=== PATIENT | female | born 1965 | race Caucasian/White ===

== ENCOUNTER → 2021-05-18 | Outpatient (CLI) | payer MEDICARE ==
[2021-05-18 17:37] LABS: Adenovirus F 40/41 Not Detected (NOT DETECT); Astrovirus Not Detected (NOT DETECT); Campylobacter Sp Not Detected (NOT DETECT); Cryptosporidium Not Detected (NOT DETECT); Cyclospora Cayetanensis Not Detected (NOT DETECT); E. Coli O157 Not Detected (NOT DETECT); Entamoeba Histolytica Not Detected (NOT DETECT); Enteroaggregative E. coli-EAEC Not Detected (NOT DETECT); Enteropathogenic E. coli-EPEC Not Detected (NOT DETECT); Enterotoxigenic E. coli-ETEC Not Detected (NOT DETECT); Giardia Lamblia Not Detected (NOT DETECT); Norovirus GI/GII Not Detected (NOT DETECT); Plesiomonas Shigelloides Not Detected (NOT DETECT); Rotavirus A Not Detected (NOT DETECT); Salmonella Sp Not Detected (NOT DETECT); Sapovirus Not Detected (NOT DETECT); Shiga Toxin-prod E. coli-STEC Not Detected (NOT DETECT); Shigella/Enteroin E. coli-EIEC Not Detected (NOT DETECT); Vibrio Cholerae Not Detected (NOT DETECT); Vibrio Sp Not Detected (NOT DETECT); Yersinia Enterocolitica Not Detected (NOT DETECT)
== END | disposition home or self-care (01) ==
LOC: LAB SHORT 11:18 → LAB 11:18
PROVIDERS: Surgery
DX: K52.9 Noninfective gastroenteritis and colitis, unspecified (principal)
CPT/HCPCS: 0097U

== ENCOUNTER 2021-06-24 08:08 | Day surgery (SDC) | payer MEDICARE ==
[~2021-06-24] VITALS: Ht 172.7 cm; Wt 73.6 kg
[2021-06-24] MEDS ORDERED: Norco 7.5-3251 EACH PO (08:56)
[2021-06-24] MEDS ORDERED: Benicar40 MG PO (08:57)
[2021-06-24] MEDS ORDERED: HYDROCHLOROTH12.5 MG PO (08:57)
[2021-06-24] MEDS ORDERED: PANT40 PO (08:58)
[2021-06-24] MEDS ORDERED: BENTYL10 MG/1 ML IM (08:58)
--- NOTE | 2021-06-24 10:05 | NUR ---
06/24/21 1005 Moriah Anne History, Chart, Medications and Allergies reviewed before start of procedure. Patient confirms NPO status and agrees with scheduled surgery. 3-LEAD EKG REVIEWED WITH PHYSICIAN PRIOR TO START OF PROCEDURE. MONITOR INTACT WITH CONTINUOUS PULSE OXIMETRY AND INTERMITTENT BP. PATIENT DETERMINED TO BE ASA APPROPRIATE FOR PROPOFOL SEDATION PRIOR TO START OF PROCEDURE BY DR. PATEL
--- NOTE | 2021-06-24 11:20 | NUR ---
Patient up to Ambulate independently. Gait steady. Discharge instructions reviewed with patient. Patient verbalizes understanding. Copy given to patient to take home. Discharged via wheelchair to private car for ride home.
== END 2021-06-24 22:51 | disposition home or self-care (01) ==
LOC: ORSCMMR 08:08 → ORD 09:00 → ORSCMMR 22:51
PROVIDERS: Surgery
PROC: 0DB68ZX Excision of Stomach, Via Natural or Artificial Opening Endoscopic, Diagnostic (ICD-10-PCS; principal; 2021-06-24 09:00)
DX: K21.00 Gastro-esophageal reflux disease with esophagitis, without bleeding (principal); K21.9 Gastro-esophageal reflux disease without esophagitis; Z87.11 Personal history of peptic ulcer disease; K44.9 Diaphragmatic hernia without obstruction or gangrene; R10.9 Unspecified abdominal pain; I10 Essential (primary) hypertension; K63.89 Other specified diseases of intestine; Z87.891 Personal history of nicotine dependence; Z79.899 Other long term (current) drug therapy
CPT/HCPCS: 88305; 88342; J2250; J2704; J7120

== ENCOUNTER 2021-10-18 08:33 | Day surgery (SDC) | payer MEDICARE ==
[~2021-10-18] VITALS: Ht 172.7 cm; Wt 70.6 kg
[~2021-10-18 08:33] MED LIST: BENTYL10 MG/1 ML IM; Benicar40 MG PO; HYDROCHLOROTH12.5 MG PO; Norco 7.5-3251 EACH PO; PANT40 PO
--- NOTE | 2021-10-18 09:24 | NUR ---
ASSESS TO DO IV, RN AND PT NOTICED A TICK BURROWED IN RIGHT FOREARM. AREA OF 2 IN ROUND REDNESS. TICK REMOVED BY WILBER POWELL WITH ALCOHOL WIPE AND TWEEZERS IN PRESENCE OF DR. PATEL. PT TOLERATED WELL. PT ALSO HAS A 6 IN ROUND BRUISE ON BACK RIGHT BACK. PT STATES SHE HAS NOT NOTICED IT AND DIDN'T EVEN KNOW IT WAS THERE.
--- NOTE | 2021-10-18 09:31 | NUR ---
Ambulatory in Day Surgery History, Chart, Medications and Allergies reviewed before start of procedure. Lungs clear T/O to Auscultation. Patient confirms NPO status and agrees with scheduled surgery. Pre-Op teaching done. Pt verbalizes understanding.
--- NOTE | 2021-10-18 10:43 | NUR ---
THE ORIGINAL ORDER ENTERED FOR VERSED 1-3 MG PREOP WAS ENTERED IM BY DR. VARGHESE VIA COMPUTER. AFER CONFIRMING DR. VARGHESE, THE ORDER WAS CHANGED TO UP TO VERSED UP TO 3 MG IV AND NOT IM. NEW ORDER WAS WRITTEN BY DR. VARGHESE AND ENTERED INTO THE EMAR BY RN. PT RECEIVED A TOTAL OF 2 MG VERSED IV.
--- NOTE | 2021-10-18 10:56 | NUR ---
THE ORDER OF UP TO 3MG VERSED IV THREW OFF THE PYXIS COUNT SO PRIETO QUINTANILLA RN HELPED AND WITNESS ME, URMILA RUIZ RN FIX AND VERIFY THE VERSED COUNT.
[2021-10-18] MEDS ORDERED: HYDACE10B PO (15:10)
--- NOTE | 2021-10-18 17:06 | NUR ---
SHIFT SUMMARY ADMIT POST OP LAVH WITH DR KARLO PERES. ALERT AND ORIENTED. ABD LAP SITES X3 WITH SMALL AMOUNT RED DRAINAGE. REGLA PAD WITH SMALL AMOUNT RED SPOTTING. TOLERATING COFFEE AND JUICE. MEDICATED FOR PAIN PRN. SBA UP TO BATHROOM, ABLE TO VOID. SITTING UP IN CHAIR AT THIS TIME.
--- NOTE | 2021-10-19 04:41 | NUR ---
SUMMARY PT PAIN MANAGED WELL PER EMAR. PT LAP SITES INTACT W/ SOME DISCHARGE NOTED AROUND NAVEL SITE. PT HAS BEEN DRINKING LITTLE WATER. PT VOIDED AND HAD NO POST VOID RESIDUAL NOTED. PT REGLA PAD HAD SCANT AMOUNTS OF BLOOD NOTED. PT HAD DIFFICULTY SLEEPING. PT EAGER TO GO HOME. PT CURRENTLY SLEEPING IN NO DISTRESS. CALL LIGHT IN REACH.
[2021-10-19] MEDS ORDERED: ACET500 PO (10:59)
[2021-10-19] MEDS ORDERED: OXYC5 PO (11:01)
--- NOTE | 2021-10-19 12:11 | NUR ---
DISCHARGE PT PROVIEDED WITH WRITTEN AND VERBAL DISCHARGE INSTRUCTIONS, SHE REPORTS UNDERSTANDING. PAIN MANAGED AT TIME OF DISCHAGE. PT ABLE TO AMBULATE OUT WITHOUT ASSISTANCE, W/C OFFERED AND PT DECLINED. PT PACKED UP AND TOOK HER BELONGINGS. PRESCRIPTIONS PROVIDED. PT DISCHARGED AT 1208.
--- NOTE | 2021-10-20 12:41 | NUR ---
10/20/21 1241 Aleah Almazan VERIFICATIONS: EDIT CHART.
== END 2021-10-19 12:08 | disposition home or self-care (01) ==
LOC: ORSCMMR 08:33 → ORD 10:30 → SURS 13:04 → ORSCMMR 10-19 12:08
PROVIDERS: Obstetrics & Gynecology
PROC: 0UT2FZZ Resection of Bilateral Ovaries, Via Natural or Artificial Opening With Percutaneous Endoscopic Assistance (ICD-10-PCS; principal; 2021-10-18 10:30)
PROC: 0UT9FZZ Resection of Uterus, Via Natural or Artificial Opening With Percutaneous Endoscopic Assistance (ICD-10-PCS; principal; 2021-10-18 10:30)
PROC: 0UT7FZZ Resection of Bilateral Fallopian Tubes, Via Natural or Artificial Opening With Percutaneous Endoscopic Assistance (ICD-10-PCS; principal; 2021-10-18 10:30)
DX: D27.1 Benign neoplasm of left ovary (principal); D27.0 Benign neoplasm of right ovary; D25.9 Leiomyoma of uterus, unspecified; R10.2 Pelvic and perineal pain; N80.0 Endometriosis of uterus; N83.8 Other noninflammatory disorders of ovary, fallopian tube and broad ligament; I10 Essential (primary) hypertension; J44.9 Chronic obstructive pulmonary disease, unspecified; F17.210 Nicotine dependence, cigarettes, uncomplicated; K21.9 Gastro-esophageal reflux disease without esophagitis; Z79.899 Other long term (current) drug therapy; E78.00 Pure hypercholesterolemia, unspecified; Z23 Encounter for immunization
CPT/HCPCS: 88307; 90686; A9270; J0171; J0690; J1100; J1170; J1885; J2250; J2370; J2405; J2704; J3010; J7120

== ENCOUNTER → 2021-12-15 | Outpatient (CLI) | payer MEDICARE ==
[~2021-12-15] MED LIST changes: +ACET500 PO; +HYDACE10B PO; +OXYC5 PO
[2021-12-15 17:24] LABS: BASOPHILS ABSOLUTE AUTO 0.03 K/mm3 (0.00-0.23); BASOPHILS PERCENT AUTO 1 % (0-2); EOSINOPHILS ABSOLUTE AUTO 0.13 K/mm3 (0.00-0.68); EOSINOPHILS PERCENT AUTO 2 % (0-6); Hemoglobin 15.5 g/dL (11.5-16.0); IMMATURE GRAN ABSOLUTE AUTO 0.02 K/mm3 (0.00-0.10); IMMATURE GRAN PERCENT AUTO 0 % (0-1); LYMPHOCYTES ABSOLUTE AUTO 2.69 K/mm3 (0.84-5.20); LYMPHOCYTES PERCENT AUTO 42 % (21-46); MONOCYTES ABSOLUTE AUTO 0.53 K/mm3 (0.16-1.47); MONOCYTES PERCENT AUTO 8 % (4-13); Mean Corpuscular HGB Conc 33.7 g/dL (31.5-36.5); Mean Corpuscular Volume 95 fL (80-100); Mean Platelet Volume 11.2 fL (9.1-12.4); NEUTROPHILS ABSOLUTE AUTO 3.08 K/mm3 (1.96-9.15); NEUTROPHILS PERCENT AUTO 48 % (41-73); Platelet Count 188 K/mm3 (150-400); RDW Coefficient Variation 12.8 % (11.7-14.2); RDW Standard Deviation 44.3 fL (35.1-46.3); Red Blood Cell Count 4.85 M/mm3 (3.80-5.20); White Blood Cell Count 6.48 K/mm3 (4.00-11.30)
[2021-12-15 17:30] LABS: Albumin, Blood 3.5 g/dL (3.4-5.0); Albumin/Globulin Ratio 1.1 (0.8-1.8); Bilirubin, Total 0.5 mg/dL (0.1-1.0); Bun/Creatinine Ratio 7.7 (12.0-20.0); Calcium, Blood 9.4 mg/dL (8.5-10.1); Creatinine, Blood 1.04 mg/dL (0.40-1.00); Globulin, Blood 3.2 g/dL (2.2-4.0); Potassium, Blood 3.7 mmol/L (3.5-5.5); Total Protein, Blood 6.7 g/dL (6.4-8.2)
== END | disposition home or self-care (01) ==
LOC: LAB SHORT 17:14
PROVIDERS: Physician Assistant
DX: N39.0 Urinary tract infection, site not specified (principal); R10.32 Left lower quadrant pain
CPT/HCPCS: 80053; 83690; 85025; 87086

== ENCOUNTER 2021-12-26 15:43 | Emergency (ER) | payer MEDICARE ==
[~2021-12-26] VITALS: Ht 172.7 cm; Wt 69.8 kg
[2021-12-26 16:06] LABS: BASOPHILS ABSOLUTE AUTO 0.03 K/mm3 (0.00-0.23); BASOPHILS PERCENT AUTO 0 % (0-2); EOSINOPHILS ABSOLUTE AUTO 0.22 K/mm3 (0.00-0.68); EOSINOPHILS PERCENT AUTO 3 % (0-6); Hematocrit 45.3 % (33.0-51.0); Hemoglobin 14.8 g/dL (11.5-16.0); IMMATURE GRAN ABSOLUTE AUTO 0.02 K/mm3 (0.00-0.10); IMMATURE GRAN PERCENT AUTO 0 % (0-1); LYMPHOCYTES ABSOLUTE AUTO 2.54 K/mm3 (0.84-5.20); LYMPHOCYTES PERCENT AUTO 33 % (21-46); MONOCYTES ABSOLUTE AUTO 0.63 K/mm3 (0.16-1.47); MONOCYTES PERCENT AUTO 8 % (4-13); Mean Corpuscular HGB 31.6 pg (26.0-34.0); Mean Corpuscular HGB Conc 32.7 g/dL (31.5-36.5); Mean Corpuscular Volume 97 fL (80-100); Mean Platelet Volume 11.6 fL (9.1-12.4); NEUTROPHILS ABSOLUTE AUTO 4.17 K/mm3 (1.96-9.15); NEUTROPHILS PERCENT AUTO 55 % (41-73); Platelet Count 192 K/mm3 (150-400); RDW Coefficient Variation 12.8 % (11.7-14.2); RDW Standard Deviation 46.3 fL (35.1-46.3); Red Blood Cell Count 4.68 M/mm3 (3.80-5.20); White Blood Cell Count 7.61 K/mm3 (4.00-11.30)
[2021-12-26] MEDS ORDERED: CIPR500 PO (16:06)
[2021-12-26] MEDS ORDERED: TRAZ50 PO (16:07)
[2021-12-26 16:27] LABS: Alanine Aminotransfer (ALT/SGP 23 U/L (12-78); Albumin, Blood 3.3 g/dL (3.4-5.0); Alk Phos 66 U/L (50-136); Anion Gap 4 mmol/L (6-16); Aspartate Aminotrans (AST/SGOT 14 U/L (12-37); Bilirubin, Total 0.3 mg/dL (0.1-1.0); Blood Urea Nitrogen 10 mg/dL (8-24); Bun/Creatinine Ratio 11.9 (12.0-20.0); CO2, Blood 28 mmol/L (21-32); Calcium, Blood 8.8 mg/dL (8.5-10.1); Chloride, Blood 108 mmol/L (98-108); Creatinine, Blood 0.84 mg/dL (0.40-1.00); Globulin, Blood 3.2 g/dL (2.2-4.0); Glomerular Filtration Rate >60 (60-); Glucose, Blood 105 mg/dL (70-99); Potassium, Blood 4.1 mmol/L (3.5-5.5); Sodium, Blood 140 mmol/L (136-145); Total Protein, Blood 6.5 g/dL (6.4-8.2)
[2021-12-26 17:13] LABS: Source, Urine Clean Catch
[2021-12-26 17:19] LABS: Appearance, Urine Clear (Clear); Bilirubin, Urine Neg (Neg); Blood, Urine Neg (Neg); Glucose Qualitative, Urine Neg (Neg); Ketones, Urine Neg (Neg); Leukocyte Esterase, Urine 1+ (Neg); Nitrite, Urine Neg (Neg); Protein, Urine Neg (Neg); Urobilinogen, Urine NORM (Normal)
[2021-12-26 17:25] LABS: Color, Urine Pale Yellow (P-Yellow)
[2021-12-26 17:29] LABS: Bacteria Mod /hpf; Red Blood Cells, Urine Not Seen /hpf (0-2); Squamous Epithelial Cells Few /hpf (Few); White Blood Cells, Urine 0-2 /hpf (0-5)
== END 2021-12-26 18:40 | disposition home or self-care (01) ==
LOC: ER 15:43
PROVIDERS: Emergency Medicine
DX: R07.9 Chest pain, unspecified (principal); M25.512 Pain in left shoulder; I49.9 Cardiac arrhythmia, unspecified; N39.0 Urinary tract infection, site not specified; F17.200 Nicotine dependence, unspecified, uncomplicated; Z79.899 Other long term (current) drug therapy
CPT/HCPCS: 36415; 71046; 80053; 81001; 84484; 85025; 93005; 93010

== ENCOUNTER → 2021-12-29 | Outpatient (CLI) | payer MEDICARE ==
[~2021-12-29] MED LIST changes: +CIPR500 PO; +TRAZ50 PO
== END | disposition home or self-care (01) ==
LOC: LAB SHORT 10:10 → LAB 10:10
DX: N39.0 Urinary tract infection, site not specified (principal)
CPT/HCPCS: 87086

== ENCOUNTER 2022-03-04 07:31 | Inpatient (IN) | payer MEDICARE ==
[~2022-03-04] VITALS: Ht 172.7 cm; Wt 70.6 kg
[~2022-03-04 07:31] MED LIST changes: +Bentyl10 MG PO; +CLON.5 PO; +Norco 10-325 T1 EACH PO; +OMEP20ER PO; +SUCRALFATE1 G1 PO; +TIZA4 PO
[2022-03-04] MEDS ORDERED: OXYC10ER PO (08:30)
[2022-03-04] MEDS ORDERED: TRAZ100 PO (08:32)
[2022-03-04] MEDS ORDERED: TERB250 PO (08:33)
--- NOTE | 2022-03-04 08:58 | NUR ---
History, Chart, Medications and Allergies reviewed before start of procedure.Lungs clear T/O to Auscultation. Pre-Op teaching done. Pt verbalizes understanding.
--- NOTE | 2022-03-04 15:06 | NUR ---
REPORT RECEIVED FROM MAGNUS MERINO IN SURGERY. PT ARRIVED TO UNIT AT 1430, RESTING WITH EYES SHUT RR E/U, AWOKE TO VERBAL COMMANDS. PT REPORTED SHE WAS IN PAIN TOERABLE AT THIS TIME. PT WAS LIGHTLY SNORING POST TRANSFER TO BED. PT AWOKE EASILY, ORIENTED TO ROOM, CALL LIGHT. PT GIVEN 2 WARM BLANKETS SHE WAS SHIVERING. ONCE BLANKETS PLACED SHIVERING STOPPED. VITALS TAKEN. PT STARTED ON LR AT 75/HOUR. ADVISED PT SHE CANNOT HAVE ANY FLUIDS UNTIL 1930 TONIGHT. PT VU. 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
--- NOTE | 2022-03-04 15:59 | NUR ---
SHIFT SUMMARY: PT POST OP HERNIA REPAIR. IN BED, NPO AT THIS TIME RESTING WITH EYES SHUT RR E/U. NO C/O PAIN AT THIS TIME. VITALS Q15. NO ACUTE CONCERNS AT THIS TIME. WILL REPORT TO MARIO MERINO.
--- NOTE | 2022-03-04 17:00 | NUR ---
ASSUMED CARE OF PATIENT AT 1630. ALERT AND ORIENTED IN BED. VSS WITH SLIGHTLY LOW BP. DENIES SOB, CP, OR DIZZINESS.
[2022-03-05 04:14] LABS: BASOPHILS ABSOLUTE AUTO 0.01 K/mm3 (0.00-0.23); BASOPHILS PERCENT AUTO 0 % (0-2); EOSINOPHILS ABSOLUTE AUTO 0.03 K/mm3 (0.00-0.68); EOSINOPHILS PERCENT AUTO 0 % (0-6); Hematocrit 36.4 % (33.0-51.0); Hemoglobin 11.9 g/dL (11.5-16.0); IMMATURE GRAN ABSOLUTE AUTO 0.02 K/mm3 (0.00-0.10); IMMATURE GRAN PERCENT AUTO 0 % (0-1); LYMPHOCYTES ABSOLUTE AUTO 1.52 K/mm3 (0.84-5.20); LYMPHOCYTES PERCENT AUTO 17 % (21-46); MONOCYTES ABSOLUTE AUTO 0.72 K/mm3 (0.16-1.47); MONOCYTES PERCENT AUTO 8 % (4-13); Mean Corpuscular HGB 31.1 pg (26.0-34.0); Mean Corpuscular HGB Conc 32.7 g/dL (31.5-36.5); Mean Corpuscular Volume 95 fL (80-100); Mean Platelet Volume 11.8 fL (9.1-12.4); NEUTROPHILS ABSOLUTE AUTO 6.64 K/mm3 (1.96-9.15); NEUTROPHILS PERCENT AUTO 74 % (41-73); Platelet Count 137 K/mm3 (150-400); RDW Coefficient Variation 13.4 % (11.7-14.2); RDW Standard Deviation 46.3 fL (35.1-46.3); Red Blood Cell Count 3.83 M/mm3 (3.80-5.20); White Blood Cell Count 8.94 K/mm3 (4.00-11.30)
[2022-03-05 04:37] LABS: Bun/Creatinine Ratio 13.1 (12.0-20.0); Calcium, Blood 8.3 mg/dL (8.5-10.1); Creatinine, Blood 0.91 mg/dL (0.40-1.00); Potassium, Blood 4.2 mmol/L (3.5-5.5)
--- NOTE | 2022-03-05 05:05 | NUR ---
ASSUMED CARE OF PT AT 1900. PT IS A&OX4, SBA TO BR AND IS ABLE TO MAKE NEEDS KNOWN. POST OP DAY 1 FOR ROBOTIC HERNIA REPAIR, ALL SITES ARE CDI WITH NO SIGNS OF INFLAMMATION, CSM IN ALL EXTREMITIES. BOWEL TONES ARE FAINT BUT ACTIVE. BP HAS BEEN SOFT THIS MORNING, INFORMED MD AND OBTAINED AN ORDER FOR 250 ML BOLUS OF NS. BP STILL REMAINS SOFT, PT DOES NOT HAVE ANY SYMPTOMS. PAIN IS WELL CONTROLLED WITH SCHEDULED OXYCONTIN. PT ON A FULL LIQUID DIET BUT NOT ALLOWED ANYTHING CARBONATED, AND NO CRACKERS PER MD. PT ABLE TO SLEEP 4 HOURS THIS SHIFT. PT CALLS APPROPRIATELY. BED IS LOW AND LOCKED, CALL LIGHT WITHIN REACH.
--- NOTE | 2022-03-05 17:04 | NUR ---
SHIFT SUMMARY PT POD #1 FOR HERNIA REPAIR. 4 LAP SITES TO ABD CDI. PT C/O UPPER ABD PAIN WELL GAS PAINS. TREATED PER EMR. BLOOD PRESSURES CONTINUE TO BE ON THE LOW SIDE SO PT WILL STAY ANOTHER NIGHT. MORNING BP MEDICATIONS HELD. PT PASSING GAS BUT HAS NOT YET HAD A BM.
[2022-03-06 04:48] LABS: BASOPHILS ABSOLUTE AUTO 0.01 K/mm3 (0.00-0.23); BASOPHILS PERCENT AUTO 0 % (0-2); EOSINOPHILS PERCENT AUTO 2 % (0-6); Hematocrit 35.2 % (33.0-51.0); Hemoglobin 11.6 g/dL (11.5-16.0); IMMATURE GRAN ABSOLUTE AUTO 0.02 K/mm3 (0.00-0.10); IMMATURE GRAN PERCENT AUTO 0 % (0-1); LYMPHOCYTES ABSOLUTE AUTO 1.87 K/mm3 (0.84-5.20); LYMPHOCYTES PERCENT AUTO 32 % (21-46); MONOCYTES ABSOLUTE AUTO 0.55 K/mm3 (0.16-1.47); MONOCYTES PERCENT AUTO 9 % (4-13); Mean Corpuscular HGB 31.7 pg (26.0-34.0); Mean Corpuscular Volume 96 fL (80-100); Mean Platelet Volume 11.7 fL (9.1-12.4); NEUTROPHILS ABSOLUTE AUTO 3.32 K/mm3 (1.96-9.15); NEUTROPHILS PERCENT AUTO 57 % (41-73); Platelet Count 122 K/mm3 (150-400); RDW Coefficient Variation 13.2 % (11.7-14.2); RDW Standard Deviation 47.2 fL (35.1-46.3); Red Blood Cell Count 3.66 M/mm3 (3.80-5.20); White Blood Cell Count 5.87 K/mm3 (4.00-11.30)
--- NOTE | 2022-03-06 06:14 | NUR ---
SUMMARY PT CONTINUES TO HAVE DISCOMFORT. PT RESPONDED WELL TO TX. PT ABLE TO SLEEP. PT CURRENTLY SLEEPING IN NO DISTRESS.
--- NOTE | 2022-03-06 06:50 | NUR ---
recvd report from previous shift WILBER Rendon, pt awake, a/o x 4,pleasant/cooperative, denies n/v, states pain controlled to tolerable levels per mar. VSS.
--- NOTE | 2022-03-06 12:36 | NUR ---
PT PROVIDED WITH DISCHARGE INSTRUCTIONS AND PRINTED MATERIALS WHICH SHE STATES UNDERSTANDING OF. PERIPHERAL IV REMOVED WNL. PT IS ESCORTED TO AWAITING VEHICLE VIA WHEELCHAIR WITH BELONGINGS IN HER LAP. MEDICATIONS FAXED TO [facility]
== END 2022-03-06 12:41 | disposition home or self-care (01) | DRG 328 ==
LOC: SURS 07:31 → PRE IP 08:15 → SURS 14:36
PROVIDERS: ADMIT Surgery
PROC: 8E0W4CZ Robotic Assisted Procedure of Trunk Region, Percutaneous Endoscopic Approach (ICD-10-PCS; 2022-03-04)
PROC: 0BUT4JZ Supplement Diaphragm with Synthetic Substitute, Percutaneous Endoscopic Approach (ICD-10-PCS; principal; 2022-03-04 09:15)
DX: K44.9 Diaphragmatic hernia without obstruction or gangrene (principal); K21.00 Gastro-esophageal reflux disease with esophagitis, without bleeding; Z90.710 Acquired absence of both cervix and uterus; F32.A Depression, unspecified; F41.9 Anxiety disorder, unspecified; K21.9 Gastro-esophageal reflux disease without esophagitis; E78.00 Pure hypercholesterolemia, unspecified; I10 Essential (primary) hypertension; G47.00 Insomnia, unspecified; Z98.890 Other specified postprocedural states; F17.210 Nicotine dependence, cigarettes, uncomplicated; Z79.899 Other long term (current) drug therapy
CPT/HCPCS: 36415; 80048; 85025; A9270; C1781; J0690; J1100; J1170; J1200; J1885; J2250; J2370; J2405; J2704; J2795; J3010; J7030; J7040; J7120

== ENCOUNTER 2022-05-26 06:31 | Day surgery (SDC) | payer MEDICARE ==
[~2022-05-26] VITALS: Ht 172.7 cm; Wt 63.3 kg
[~2022-05-26 06:31] MED LIST changes: +OXYC10ER PO; +TERB250 PO; +TRAZ100 PO
[2022-05-26] MEDS ORDERED: CLON.5 (07:18)
== END 2022-05-26 09:13 | disposition home or self-care (01) ==
LOC: ORSCSDS 06:31
PROVIDERS: Surgery
PROC: 0DD68ZX Extraction of Stomach, Via Natural or Artificial Opening Endoscopic, Diagnostic (ICD-10-PCS; principal; 2022-05-26 08:00)
DX: R10.13 Epigastric pain (principal); R63.4 Abnormal weight loss; F17.210 Nicotine dependence, cigarettes, uncomplicated; K21.9 Gastro-esophageal reflux disease without esophagitis; F32.A Depression, unspecified; F41.9 Anxiety disorder, unspecified; K29.70 Gastritis, unspecified, without bleeding; E78.5 Hyperlipidemia, unspecified; I10 Essential (primary) hypertension; K58.9 Irritable bowel syndrome, unspecified; Z79.899 Other long term (current) drug therapy
CPT/HCPCS: 88305; 88342; J2250; J2704; J7120

== ENCOUNTER 2023-03-07 06:58 | Emergency (ER) | payer MEDICARE ==
[~2023-03-07] VITALS: Ht 167.6 cm; Wt 72.6 kg
[~2023-03-07 06:58] MED LIST changes: +CLON.5; +Robaxin750 MG PO; +VENL25 PO; +Voltaren100 GM TOP
[2023-03-07 09:04] LABS: BASOPHILS ABSOLUTE AUTO 0.03 K/mm3 (0.00-0.23); BASOPHILS PERCENT AUTO 0 % (0-2); EOSINOPHILS ABSOLUTE AUTO 0.14 K/mm3 (0.00-0.68); EOSINOPHILS PERCENT AUTO 2 % (0-6); Hematocrit 44.7 % (33.0-51.0); IMMATURE GRAN ABSOLUTE AUTO 0.03 K/mm3 (0.00-0.10); IMMATURE GRAN PERCENT AUTO 0 % (0-1); LYMPHOCYTES ABSOLUTE AUTO 1.77 K/mm3 (0.84-5.20); LYMPHOCYTES PERCENT AUTO 21 % (21-46); MONOCYTES ABSOLUTE AUTO 0.58 K/mm3 (0.16-1.47); MONOCYTES PERCENT AUTO 7 % (4-13); Mean Corpuscular HGB Conc 33.6 g/dL (31.5-36.5); Mean Corpuscular Volume 92 fL (80-100); Mean Platelet Volume 11.2 fL (9.1-12.4); NEUTROPHILS ABSOLUTE AUTO 6.01 K/mm3 (1.96-9.15); NEUTROPHILS PERCENT AUTO 70 % (41-73); Platelet Count 186 K/mm3 (150-400); RDW Coefficient Variation 13.1 % (11.7-14.2); RDW Standard Deviation 44.7 fL (35.1-46.3); Red Blood Cell Count 4.84 M/mm3 (3.80-5.20); White Blood Cell Count 8.56 K/mm3 (4.00-11.30)
[2023-03-07 09:30] LABS: Albumin, Blood 3.7 g/dL (3.4-5.0); Albumin/Globulin Ratio 1.2 (0.8-1.8); Bilirubin, Total 0.3 mg/dL (0.1-1.0); Bun/Creatinine Ratio 12.4 (12.0-20.0); Calcium, Blood 9.4 mg/dL (8.5-10.1); Creatinine, Blood 0.8 mg/dL (0.40-1.00); Globulin, Blood 3.2 g/dL (2.2-4.0); Potassium, Blood 4.1 mmol/L (3.5-5.5); Total Protein, Blood 6.9 g/dL (6.4-8.2)
[2023-03-07 10:00] VITALS: BP 143/88
== END 2023-03-07 10:45 | disposition home or self-care (01) ==
LOC: ER 06:58
PROVIDERS: Student in an Organized Health Care Education/Training Program
DX: R07.2 Precordial pain (principal); R06.02 Shortness of breath; F17.210 Nicotine dependence, cigarettes, uncomplicated
CPT/HCPCS: 71046; 80053; 83690; 83880; 84484; 85025; 93005; 93010; 99285-25

== ENCOUNTER → 2024-10-18 | Outpatient (CLI) | payer OTHER | LOC: LAB SHORT 16:09 → LAB 16:09 | DX: R30.0 Dysuria (principal) | CPT/HCPCS: 87086 ==

== ENCOUNTER 2025-03-18 07:45 | Day surgery (SDC) | payer OTHER ==
[~2025-03-18] VITALS: Ht 170.2 cm; Wt 94.4 kg
[2025-03-18] MEDS ORDERED: CHLO25B PO (08:00)
[2025-03-18] MEDS ORDERED: CATAPRES-TTS 11 EAC1 TOP (08:00)
[2025-03-18] MEDS ORDERED: BEET ROOT500 MG PO (08:01)
[2025-03-18] MEDS ORDERED: TURMERIC500 M2 PO (08:01)
[2025-03-18] MEDS ORDERED: PANT40 PO (08:01)
[2025-03-18] MEDS ORDERED: MULVITA PO (08:01)
[2025-03-18] MEDS ORDERED: MERIBIN5 MG PO (08:01)
[2025-03-18] MEDS ORDERED: VITAMIN D325 MC3 PO (08:02)
[2025-03-18] MEDS ORDERED: Midazolam HCL 1 MG/ML 5MLVIAL ONE (08:41)
[2025-03-18 10:17] VITALS: BP 104/74
== END 2025-03-18 10:19 | disposition home or self-care (01) ==
LOC: ORSCSDS 07:45
PROVIDERS: Internal Medicine Gastroenterology
PROC: 0DBM8ZX Excision of Descending Colon, Via Natural or Artificial Opening Endoscopic, Diagnostic (ICD-10-PCS; principal; 2025-03-18 09:00)
PROC: 0DBN8ZX Excision of Sigmoid Colon, Via Natural or Artificial Opening Endoscopic, Diagnostic (ICD-10-PCS; principal; 2025-03-18 09:00)
PROC: 0DJ08ZZ Inspection of Upper Intestinal Tract, Via Natural or Artificial Opening Endoscopic (ICD-10-PCS; principal; 2025-03-18 09:00)
PROC: 0DBH8ZX Excision of Cecum, Via Natural or Artificial Opening Endoscopic, Diagnostic (ICD-10-PCS; principal; 2025-03-18 09:00)
PROC: 0DBL8ZX Excision of Transverse Colon, Via Natural or Artificial Opening Endoscopic, Diagnostic (ICD-10-PCS; principal; 2025-03-18 09:00)
DX: R13.10 Dysphagia, unspecified (principal); D12.3 Benign neoplasm of transverse colon; D12.1 Benign neoplasm of appendix; K63.5 Polyp of colon; K57.30 Diverticulosis of large intestine without perforation or abscess without bleeding; R10.13 Epigastric pain; R19.7 Diarrhea, unspecified; Z80.0 Family history of malignant neoplasm of digestive organs; F41.9 Anxiety disorder, unspecified; F32.A Depression, unspecified; I10 Essential (primary) hypertension; E78.00 Pure hypercholesterolemia, unspecified; Z79.899 Other long term (current) drug therapy; F17.210 Nicotine dependence, cigarettes, uncomplicated
CPT/HCPCS: 88305; J2250; J2704; J7120